=== PATIENT | female | born 1950 | race Caucasian/White ===

== ENCOUNTER 2017-03-07 20:29 | Emergency (ER) | payer SELFPAY ==
[~2017-03-07] VITALS: Ht 160 cm; Wt 73.0 kg
[2017-03-07 20:41] VITALS: Ht 160 cm; Wt 73.0 kg
--- NOTE | 2017-03-07 21:24 | EN ---
Date/Time of Note Date/Time of Note DATE: 03/07/17 TIME: 21:22 ER Progress Note This is a 66-year-old female presenting to the emergency department for left shoulder pain after fall. Patient fell 2 months ago and landed on her left shoulder. Patient now unable to move her left arm and states she has severe pain. Patient has been taking ibuprofen 200-400 mg without relief of pain. Has not had an x-ray or been seen by a provider for this. No chest pain, shortness breath or difficulty breathing. No significant past medical history. Patient is seen in [facility] and will be sent to ER2 for additional management. JOSE A VAZQUEZ NP Mar 07, 2017 21:24
[2017-03-07] MEDS ORDERED: NAPROXEN 500 MG TAB PO ONE (22:00)
--- NOTE | 2017-03-07 22:12 | ERD ---
ER Documentation Chief Complaint Date/Time DATE: 03/07/17 TIME: 22:07 Chief Complaint Pt injured L shoulder and Ibuprofen 200mg not working HPI Patient is a 66-year-old female here with daughter who presents the ED with chronic left shoulder pain. Patient states that 2 months ago she hit her left shoulder against the wall and has had pain ever since. States that in the last week the pain is increased. States that she is unable to lift her arm all the way up. She also has left-sided neck pain. Denies headache or dizziness. Denies chest pain or cough or shortness of breath. Denies leg pain or swelling. She is taking ibuprofen which is helped minimally with her symptoms. She has not seen a doctor regarding this issue. ROS All systems reviewed and are negative except as per history of present illness. Medications Home Meds Active Scripts Naproxen* (Naprosyn*) 500 Mg Tablet, 500 MG PO BID Y for PAIN AND/OR INFLAMMATION, #30 TAB Prov:BONG CUMMINGS PA-C 03/07/17 Allergies Allergies: Coded Allergies: No Known Allergy (Unverified , 03/07/17) PMhx/Soc History of Surgery: Yes (Breast cancer 1996) Anesthesia Reaction: No Hx Neurological Disorder: No Hx Respiratory Disorders: No Hx Cardiac Disorders: No Hx Psychiatric Problems: No Hx Miscellaneous Medical Probl: No Hx Alcohol Use: No Hx Substance Use: No Hx Tobacco Use: No Smoking Status: Never smoker Physical Exam Vitals Vital Signs Date Time Temp Pulse Resp B/P Pulse Ox O2 Delivery O2 Flow Rate FiO2 03/07/17 20:41 97.3 77 16 132/71 97 Physical Exam GENERAL: Well-developed, well-nourished female. Appears in no acute distress. HEAD: Normocephalic, atraumatic. LUNG: Clear to auscultation bilaterally. No rhonchi, wheezing, rales or coarse breath sounds. HEART: Regular rate and rhythm. No murmurs, rubs or gallops. Extremities: Equal pulses bilaterally. No peripheral clubbing, cyanosis or edema. No unilateral leg swelling. No step-offs or deformities. Positive Spurling's test on the left side. Tenderness to the deltoid of the left shoulder. Pain with extension flexion elevation. Unable to fully abduct. Decrease in internal rotation. negative empty can test. NEUROLOGIC: Alert and oriented. Moving all four extremities. 5/5 strength in all extremities. Normal speech. Steady gait. SKIN: Normal color. Warm and dry. No rashes or lesions. Capillary refill < 2 seconds Results 24 hrs Current Medications Medications (Trade) Dose Ordered Sig/Leonardo Route PRN Reason Start Time Stop Time Status Last Admin Dose Admin Naproxen (Naprosyn) 500 mg ONCE ONCE PO 03/07/17 22:00 03/07/17 22:01 DC 03/07/17 22:02 Procedures/MDM ER COURSE: I kept the patient and/or family informed of laboratory and diagnostic imaging results throughout the emergency room course. IMAGING STUDIES [place] [address] Radiology Main Line: [phone] DIAGNOSTIC IMAGING REPORT Patient: BLANE CHAMPAGNE : 1950 Age: 66 Sex: F MR #: [id number] DOS: 03/07/172131 Ordering MD: BONG UCMMINGS PA-C Location: [facility] Room/Bed: PROCEDURE: Shoulder series CLINICAL INDICATION: Left shoulder pain following trauma TECHNIQUE: AP and transscapular Y view of the left shoulder are obtained COMPARISON: None available FINDINGS: The osseous structures are intact with no evidence of fracture or dislocation. The acromioclavicular and coracoclavicular regions are remarkable for moderate left acromioclavicular osteoarthropathy. The left lung apex and ribs are normal . The soft tissues are normal in appearance. IMPRESSION: 1. No acute fractures or dislocations are present. 2. Moderate left acromioclavicular osteoarthropathy is present. RPTAT: HDC .Leila Wu MD, MD Date Time Electronically viewed and signed by .Leila Wu MD, on 03/07/2017 22: 31 .C/ CC: SHOOSHTARIAN,TANNAZ PA-C MEDICATIONS Naprosyn. Tolerated well with no adverse reaction MEDICAL DECISION MAKING: This is a 66-year-old female who presents with left shoulder pain 2 months. Vital signs were reviewed. Patient is afebrile. Patient is not hypoxic. Patient is nontoxic or ill-appearing. X-rays of by radiologist unremarkable for fracture dislocation. Patient has left shoulder pain likely muscle strain versus cervical radiculopathy versus adhesive capsulitis. Low suspicion for dislocation, fracture, septic joint, compartment syndrome, osteomyelitis, cellulitis, avascular necrosis, neurological injury, vascular injury, tendon laceration. Patient was given in ED sling. Neurovascularly intact post placement. DISCHARGE: At this time, patient is stable for discharge and outpatient management with no new complaints during the ER course. Patient was sent home with copy of imaging report, Naprosyn and to follow-up with orthopedics for further evaluation.. Patient will be discharged home with instructions to recheck for new or worsening symptoms such as fever, nausea, weakness, LOC and to follow up with primary care in the next 1-2 days. Patient was advised to return to the ER for any new or worsening symptoms. Plan was discussed and patient and/or family understands and agrees. Home instructions were given. Departure Diagnosis: Primary Impression: Shoulder pain, left Chronicity: chronic Qualified Code: M25.512 - Chronic left shoulder pain Condition: Stable BONG CUMMINGS PA-C Mar 07, 2017 22:11
--- NOTE | 2017-03-07 22:32 | RADRPT ---
PROCEDURE: Shoulder series CLINICAL INDICATION: Left shoulder pain following trauma TECHNIQUE: AP and transscapular Y view of the left shoulder are obtained COMPARISON: None available FINDINGS: The osseous structures are intact with no evidence of fracture or dislocation. The acromioclavicula r and coracoclavicular regions are remarkable for moderate left acromioclavicular osteoarthropathy. The left lung apex and ribs are normal . The soft tissues are normal in appearance. IMPRESSION: 1. No acute fractures or dislocations are present. 2. Moderate left acromioclavicular osteoarthropathy is present. RPTAT: HDC .Leila Wu MD, Date Time Electronically viewed and signed by .Leila Wu MD, MD on 03/07/2017 22:31 .C/
[2017-03-07] MEDS ORDERED: NAPR-260 PO (22:53)
== END 2017-03-07 23:48 | disposition home or self-care (01) ==
LOC: FTE 20:29
DX: M25.512 Pain in left shoulder (principal); Z85.3 Personal history of malignant neoplasm of breast
CPT/HCPCS: 73030